=== PATIENT | female | born 1945 | race Caucasian/White ===

== ENCOUNTER 2018-11-10 11:23 | Emergency (ER) | payer SELFPAY, OTHER ==
[2018-11-10] MEDS: HYDROCODONE/APAP (5/325) TAB PO ×2 (15:08→17:26)
[2018-11-10] MEDS: ONDANSETRON (ODT) 4 MG TAB ODT (15:08)
== END 2018-11-10 17:31 | disposition home or self-care (01) ==
LOC: FTE 11:23
DX: S02.31XA Fracture of orbital floor, right side, initial encounter for closed fracture (principal); S02.40DA Maxillary fracture, left side, initial encounter for closed fracture; S61.411A Laceration without foreign body of right hand, initial encounter; R51 Headache; V49.49XA Driver injured in collision with other motor vehicles in traffic accident, initial encounter
CPT/HCPCS: 70450; 70486; 71250; 72125; 72128; 72131; 73030-RT; 73060-RT; 73080-RT; 73090-RT; 73130-RT; 99284-25